=== PATIENT | male | born 1970 | race Caucasian/White ===

== ENCOUNTER 2018-11-08 00:21 | Outpatient (CLI) | payer MEDICAID, SELFPAY ==
--- NOTE | 2018-11-08 09:57 | DI.US_ITS ---
SYMPTOMS/DIAGNOSIS: CONSTANT LOWER ABD PAIN, R10.30, DECREASED FLOW IN URINE [place]. IF BOWELS/BLADDER FULL, ? HERNIA OR ABD MASS ABDOMINAL AND PELVIC ULTRASOUND: Routine examination was performed. The aorta is of normal caliber. The IVC is unremarkable. The liver is normal in size. There is increased echogenicity of the liver suggestive of hepatic steatosis. No discrete hepatic mass is seen. There are several echogenic immobile foci along the wall of the gallbladder likely reflecting polyps. No mobile stones, sludge, gallbladder wall thickening or pericholecystic fluid is seen. The common duct is within normal limits at .4 cm. The pancreas is unremarkable. The spleen is at the upper limits of normal at 12.7 cm. The kidneys are unremarkable. The lower quadrants were evaluated sonographically. No sonographic abnormalities identified. No abdominal wall hernia are identified. The urinary bladder appears grossly unremarkable. The ureteral jets were visualized. IMPRESSION: 1. Findings suggestive of hepatic steatosis. 2. Immobile echogenic nodules along the wall of the gallbladder likely reflecting polyps. 3. No sonographic evidence of an abdominal wall hernia.
== END 2018-11-08 00:41 ==
PROVIDERS: PCP Physician Assistant Medical; Visit Provider Naturopath
DX: R10.31 Right lower quadrant pain (principal); K76.0 Fatty (change of) liver, not elsewhere classified; K82.4 Cholesterolosis of gallbladder
CPT/HCPCS: 76700; 76856

== ENCOUNTER 2020-12-06 15:39 | Outpatient (REF) | payer MEDICAID, SELFPAY ==
[2020-12-06 15:46] LABS: Absolute Basophil Count 0.04 10^3/uL (0.0-0.2); Absolute Lymphocyte Count 1.69 10^3/uL (1.2-3.4); Absolute Monocyte Count 0.43 10^3/uL (0.1-0.8); Absolute Neutrophil Count 2.67 10^3/uL (1.2-6.7); Basophils % 0.8; HCT 43.7 % (40.0-50.0); HGB 14.8 g/dL (13.5-17.5); MCHC 33.9 % (32.0-36.0); MCV 82.6 fL (80-95); MPV 9.3 fL (8.0-11.0); Monocytes % 8.9; Neutrophils % 55.3; Nucleated RBC 0 %; Platelet Count 285 10^3/uL (130-400); RBC 5.29 10^6/uL (4.36-5.78); RDW 12.9 % (11.8-14.1); RDW-SD 38.6 fL; WBC 4.83 10^3/uL (4.4-10.8)
[2020-12-06 15:55] LABS: ALT 53 U/L (16-63); AST 22 U/L (15-37); Albumin 3.9 g/dL (3.4-5.0); Alkaline Phosphatase 94 U/L (46-116); Anion Gap 7.9 mmol/L (3-11); BUN 16 mg/dL (7-18); Bilirubin, Total 0.5 mg/dL (0.2-1.0); CO2 27.1 mmol/L (21.0-32.0); Calcium 8.8 mg/dL (8.5-10.1); Calculated LDL 176 mg/dL (<100); Chloride 107 mmol/L (98-107); Cholesterol 273 mg/dL (<200); Glucose 99 mg/dL (74-106); HDL Cholesterol 41 mg/dL (40-60); Potassium 4.5 mmol/L (3.5-5.1); Sodium 142 mmol/L (136-145); Total Protein 7.2 g/dL (6.4-8.2); Triglyceride 280 mg/dL (<150)
[2020-12-06 16:00] LABS: Hemoglobin A1C 5.9 % (<5.7)
== END 2020-12-06 15:40 | disposition home or self-care (01) ==
LOC: NCHCN 15:39
PROVIDERS: PCP Physician Assistant Medical; Visit Provider Physician Assistant Medical
DX: E78.5 Hyperlipidemia, unspecified (principal); R73.9 Hyperglycemia, unspecified; R00.2 Palpitations; R73.09 Other abnormal glucose
CPT/HCPCS: 80053; 80061; 83036; 85025

== ENCOUNTER 2021-06-19 17:29 | Outpatient (REF) | payer MEDICAID, SELFPAY ==
[2021-06-19 19:31] LABS: Hemoglobin A1C 5.9 % (<5.7)
[2021-06-19 20:20] LABS: Anion Gap 12.4 mmol/L (3-11); BUN 12 mg/dL (7-18); CO2 27.6 mmol/L (21.0-32.0); Calcium 8.4 mg/dL (8.5-10.1); Calculated LDL 135 mg/dL (<100); Chloride 96 mmol/L (98-107); Cholesterol 193 mg/dL (<200); Glucose 108 mg/dL (74-106); HDL Cholesterol 30 mg/dL (40-60); Magnesium 2.3 mg/dL (1.8-2.4); Potassium 3.7 mmol/L (3.5-5.1); Sodium 136 mmol/L (136-145); Triglyceride 140 mg/dL (<150)
== END 2021-06-19 17:30 | disposition home or self-care (01) ==
LOC: NCHCN 17:29
PROVIDERS: PCP Physician Assistant Medical; Visit Provider Nurse Practitioner Family
DX: R00.2 Palpitations (principal); E78.5 Hyperlipidemia, unspecified
CPT/HCPCS: 80048; 80061; 83036; 83735